=== PATIENT | male | born 1960 | race Caucasian/White ===

== ENCOUNTER 2021-03-03 03:38 | Outpatient (CLI) | payer OTHER, MEDICAID, SELFPAY ==
[2021-03-03 11:08] LABS: Abs Immature Grans 0.02 10^3/uL (0.0-0.06); Absolute Basophil Count 0.05 10^3/uL (0.0-0.2); Absolute Eosinophil Count 0.27 10^3/uL (0.0-0.7); Absolute Lymphocyte Count 1.73 10^3/uL (1.2-3.4); Absolute Monocyte Count 0.56 10^3/uL (0.1-0.8); Absolute Neutrophil Count 4.39 10^3/uL (1.2-6.7); Basophils % 0.7; Eosinophils % 3.8; HCT 45.5 % (40.0-50.0); Immature Grans % 0.3; Lymphocytes % 24.6; MCH 26.3 pg (27.0-33.0); MCHC 30.8 % (32.0-36.0); MCV 85.4 fL (80-95); MPV 10.8 fL (8.0-11.0); Neutrophils % 62.6; Nucleated RBC 0 %; Platelet Count 185 10^3/uL (130-400); RBC 5.33 10^6/uL (4.36-5.78); RDW 20.2 % (11.8-14.1); RDW-SD 59.5 fL; WBC 7.02 10^3/uL (4.4-10.8)
[2021-03-03 11:15] LABS: ALT 48 U/L (16-63); AST 24 U/L (15-37); Albumin 2.7 g/dL (3.4-5.0); Alkaline Phosphatase 82 U/L (46-116); Anion Gap 6.9 mmol/L (3-11); BUN 6 mg/dL (7-18); Bilirubin, Total 0.6 mg/dL (0.2-1.0); CO2 29.1 mmol/L (21.0-32.0); CREATININE 0.8 mg/dL (0.70-1.30); Calcium 9.1 mg/dL (8.5-10.1); Chloride 106 mmol/L (98-107); Glucose 103 mg/dL (74-106); Potassium 4.3 mmol/L (3.5-5.1); Sodium 142 mmol/L (136-145); Total Protein 6.6 g/dL (6.4-8.2)
[2021-03-03 11:29] LABS: Diff Comment Diff Reviewed
[2021-03-03 11:30] LABS: Anisocytosis 2+; Hypochromasia 1+; Microcytosis 1+; Poikilocytes 1+; Polychromasia Present
[2021-03-05 19:04] LABS: DPYD Predicted Toxicity Risk Normal
== END 2021-03-03 03:39 | disposition home or self-care (01) ==
PROVIDERS: Visit Provider Internal Medicine Hematology & Oncology
DX: C18.2 Malignant neoplasm of ascending colon (principal)
CPT/HCPCS: 36415; 80053; 81232; 85025

== ENCOUNTER 2021-04-04 04:40 | Outpatient (RCR) | payer OTHER, MEDICAID, SELFPAY ==
[2021-03-21] MEDS: Normal Saline Flush 10 ML SYR IVP (09:49)
[2021-03-21 10:00] LABS: Abs Immature Grans 0.06 10^3/uL (0.0-0.06); Absolute Eosinophil Count 0.05 10^3/uL (0.0-0.7); Absolute Monocyte Count 0.49 10^3/uL (0.1-0.8); Basophils % 0.3; Eosinophils % 0.4; HCT 43.7 % (40.0-50.0); HGB 13.4 g/dL (13.5-17.5); Immature Grans % 0.5; Lymphocytes % 6.4; MCH 26.4 pg (27.0-33.0); MCHC 30.7 % (32.0-36.0); MCV 86.2 fL (80-95); MPV 10.7 fL (8.0-11.0); Monocytes % 4.2; Neutrophils % 88.2; Nucleated RBC 0 %; RBC 5.07 10^6/uL (4.36-5.78); RDW 21.5 % (11.8-14.1); RDW-SD 66.3 fL; WBC 11.64 10^3/uL (4.4-10.8)
[2021-03-21 10:06] LABS: Absolute Basophil Count 0.03 10^3/uL (0.0-0.2); Absolute Lymphocyte Count 0.74 10^3/uL (1.2-3.4); Absolute Neutrophil Count 10.27 10^3/uL (1.2-6.7)
[2021-03-21 10:12] LABS: Platelet Count 272 10^3/uL (130-400)
[2021-03-21 10:13] LABS: Anisocytosis 2+; Diff Comment Diff Reviewed; Hypochromasia 1+; Polychromasia Present
[2021-03-21 10:14] LABS: Poikilocytes 2+
[2021-03-21 10:20] LABS: ALT 17 U/L (16-63); AST 12 U/L (15-37); Albumin 2.4 g/dL (3.4-5.0); Alkaline Phosphatase 93 U/L (46-116); Anion Gap 7.1 mmol/L (3-11); BUN 6 mg/dL (7-18); Bilirubin, Total 0.5 mg/dL (0.2-1.0); CO2 28.9 mmol/L (21.0-32.0); CREATININE 0.8 mg/dL (0.70-1.30); Calcium 8.3 mg/dL (8.5-10.1); Chloride 104 mmol/L (98-107); Glucose 140 mg/dL (74-106); Potassium 4.7 mmol/L (3.5-5.1); Sodium 140 mmol/L (136-145); Total Protein 6.7 g/dL (6.4-8.2)
[2021-03-21 17:10] LABS: CEA 10.7 ng/mL (See Note)
[2021-04-04] MEDS: Normal Saline Flush 10 ML SYR IVP (09:14)
[2021-04-04] MEDS: Heparin 500 UNITS/5 ML SYRINGE IV (09:15)
[2021-04-04 09:30] LABS: Abs Immature Grans 0.04 10^3/uL (0.0-0.06); Absolute Basophil Count 0.04 10^3/uL (0.0-0.2); Absolute Eosinophil Count 0.05 10^3/uL (0.0-0.7); Absolute Lymphocyte Count 0.95 10^3/uL (1.2-3.4); Absolute Monocyte Count 0.68 10^3/uL (0.1-0.8); Absolute Neutrophil Count 6.73 10^3/uL (1.2-6.7); Basophils % 0.5; Eosinophils % 0.6; HCT 41.3 % (40.0-50.0); HGB 12.5 g/dL (13.5-17.5); Immature Grans % 0.5; Lymphocytes % 11.2; MCH 25.9 pg (27.0-33.0); MCHC 30.3 % (32.0-36.0); MCV 85.7 fL (80-95); MPV 10.3 fL (8.0-11.0); Neutrophils % 79.2; Nucleated RBC 0 %; Platelet Count 219 10^3/uL (130-400); RBC 4.82 10^6/uL (4.36-5.78); RDW 20.5 % (11.8-14.1); RDW-SD 62.5 fL; WBC 8.49 10^3/uL (4.4-10.8)
[2021-04-04 09:47] LABS: ALT 17 U/L (16-63); AST 15 U/L (15-37); Albumin 2.4 g/dL (3.4-5.0); Alkaline Phosphatase 77 U/L (46-116); Anion Gap 5.8 mmol/L (3-11); BUN 6 mg/dL (7-18); Bilirubin, Total 0.6 mg/dL (0.2-1.0); CO2 33.2 mmol/L (21.0-32.0); Calcium 8.3 mg/dL (8.5-10.1); Chloride 101 mmol/L (98-107); Glucose 138 mg/dL (74-106); Potassium 3.6 mmol/L (3.5-5.1); Sodium 140 mmol/L (136-145); Total Protein 6.4 g/dL (6.4-8.2)
[2021-04-04 17:06] LABS: CEA 7.6 ng/mL (See Note)
== END 2021-04-14 23:59 | disposition home or self-care (01) ==
LOC: INF 04:40
PROVIDERS: Visit Provider Internal Medicine Hematology & Oncology
DX: C18.2 Malignant neoplasm of ascending colon (principal); R11.2 Nausea with vomiting, unspecified; T50.905A Adverse effect of unspecified drugs, medicaments and biological substances, initial encounter; Z45.2 Encounter for adjustment and management of vascular access device
CPT/HCPCS: 36415; 36591; 80053; 82378; 85025

== ENCOUNTER 2021-05-02 08:30 | Outpatient (RCR) | payer OTHER, MEDICAID, SELFPAY ==
[2021-05-02 08:57] LABS: Abs Immature Grans 0.07 10^3/uL (0.0-0.06); Absolute Basophil Count 0.04 10^3/uL (0.0-0.2); Absolute Eosinophil Count 0.06 10^3/uL (0.0-0.7); Absolute Lymphocyte Count 1.32 10^3/uL (1.2-3.4); Absolute Monocyte Count 0.87 10^3/uL (0.1-0.8); Basophils % 0.4; Eosinophils % 0.5; HCT 42.5 % (40.0-50.0); HGB 12.8 g/dL (13.5-17.5); Immature Grans % 0.6; Lymphocytes % 11.8; MCH 25.1 pg (27.0-33.0); MCHC 30.1 % (32.0-36.0); MCV 83.3 fL (80-95); Monocytes % 7.8; Neutrophils % 78.9; Nucleated RBC 0 %; Platelet Count 323 10^3/uL (130-400); RDW 21.2 % (11.8-14.1); RDW-SD 60.7 fL; WBC 11.15 10^3/uL (4.4-10.8)
[2021-05-02] MEDS: Normal Saline Flush 10 ML SYR IVP (08:58)
[2021-05-02 09:08] LABS: ALT 14 U/L (16-63); AST 12 U/L (15-37); Albumin 2.2 g/dL (3.4-5.0); Alkaline Phosphatase 86 U/L (46-116); Anisocytosis 2+; BUN 21 mg/dL (7-18); Bilirubin, Total 0.3 mg/dL (0.2-1.0); CREATININE 1.1 mg/dL (0.70-1.30); Calcium 8.8 mg/dL (8.5-10.1); Chloride 98 mmol/L (98-107); Diff Comment RBC Morph Reviewed; Glucose 136 mg/dL (74-106); Potassium 4.4 mmol/L (3.5-5.1); Sodium 134 mmol/L (136-145); Total Protein 7.1 g/dL (6.4-8.2)
[2021-05-02 09:09] LABS: Polychromasia Present
[2021-05-02 18:00] LABS: CEA 7.9 ng/mL (See Note)
== END 2021-05-14 23:59 | disposition home or self-care (01) ==
LOC: INF 08:30
PROVIDERS: Visit Provider Internal Medicine Hematology & Oncology
DX: C18.2 Malignant neoplasm of ascending colon (principal); Z45.2 Encounter for adjustment and management of vascular access device; R11.2 Nausea with vomiting, unspecified; T50.905A Adverse effect of unspecified drugs, medicaments and biological substances, initial encounter
CPT/HCPCS: 36591; 80053; 82378; 85025